=== PATIENT | male | born 1975 | race Hispanic/Latino ===

== ENCOUNTER 2022-09-23 14:26 | Emergency (ER) | payer OTHER ==
[~2022-09-23] VITALS: Ht 180.3 cm; Wt 176.9 kg
[2022-09-23 14:50] LABS: BASOPHILS % (AUTO) 0.3 % (0.0-5.0); EOSINOPHILS % (AUTO) 0.7 % (0.0-8.0); HEMATOCRIT 39.9 % (42-54); LYMPHOCYTES % (AUTO) 23.5 % (21.0-51.0); MEAN CORPUSCULAR HEMOGLOBIN 29.6 pg (27.0-33.0); MEAN CORPUSCULAR HGB CONC 35.3 g/dL (32.0-36.0); MEAN CORPUSCULAR VOLUME 83.6 fL (79-99); MONOCYTES % (AUTO) 21.1 % (3.0-13.0); NEUTROPHILS % (AUTO) 52.2 % (40.0-77.0); NUCLEATED RED BLOOD CELLS 0.3 % (0.0-0.19); PLATELET COUNT (AUTO) 159 K/uL (130-400); RED BLOOD CELL COUNT(AUTO) 4.77 MIL/uL (4.50-6.20); RED CELL DISTRIBUTION WIDTH 14.8 % (11.0-15.5); WHITE BLOOD COUNT (AUTO) 7.1 K/uL (4.8-10.8)
[2022-09-23 14:56] LABS: CREATININE 0.9 mg/dL (0.5-1.5); POTASSIUM 3.5 mmol/L (3.5-5.1)
[2022-09-23 15:06] LABS: TOTAL PROTEIN, SERUM 8.4 g/dL (6.0-8.3)
[2022-09-23 15:12] LABS: APPEARANCE,URINE CLEAR (CLEAR); BILIRUBIN,URINE NEGATIVE (NEGATIVE); COLOR,URINE LIGHT-YELLOW (YELLOW); GLUCOSE, URINE (UA) NEGATIVE (NEGATIVE); KETONES,URINE NEGATIVE (NEGATIVE); LEUKOCYTE ESTERASE ,URINE NEGATIVE Leu/uL (NEGATIVE); NITRATE,URINE NEGATIVE (NEGATIVE); OCCULT BLOOD,URINE NEGATIVE (NEGATIVE); PH,URINE 6.5 (5.0-8.0); PROTEIN,URINE 10 mg/dL (NEGATIVE); UROBILINOGEN,URINE 0.2 mg/dL (0.2-1.0)
[2022-09-23 15:24] LABS: BACTERIA,URINE RARE /HPF (None Seen); MUCUS,URINE RARE LPF (None Seen); OTHER CASTS, URINE 1 /LPF (None Seen); RBC,URINE 0-1 /HPF (0-1); SQUAMOUS EPITHELIAL CELL,UR FEW /HPF (0-2)
[2022-09-23] MEDS ORDERED: IBUP-1493 PO (16:56)
[2022-09-23 17:11] VITALS: BP 147/76
[2022-09-23] MEDS ORDERED: KETOROLAC 30MG VIAL (30MG/ML) IVP ONE (17:30)
== END 2022-09-23 17:12 | disposition home or self-care (01) ==
LOC: EDH 14:26
DX: K76.0 Fatty (change of) liver, not elsewhere classified (principal); R10.13 Epigastric pain
CPT/HCPCS: 36415; 71045; 76705; 80053; 81001; 84484; 85025; 87088; 93005

== ENCOUNTER 2022-09-24 07:23 | Emergency (ER) | payer OTHER ==
[~2022-09-24] VITALS: Ht 180.3 cm; Wt 176.9 kg
[~2022-09-24 07:23] MED LIST: IBUP-1493 PO
[2022-09-24 07:44] LABS: BASOPHILS % (AUTO) 0.6 % (0.0-5.0); EOSINOPHILS % (AUTO) 0.4 % (0.0-8.0); HEMATOCRIT 40.4 % (42-54); LYMPHOCYTES % (AUTO) 19.9 % (21.0-51.0); MEAN CORPUSCULAR HEMOGLOBIN 29.2 pg (27.0-33.0); MEAN CORPUSCULAR HGB CONC 34.9 g/dL (32.0-36.0); MEAN CORPUSCULAR VOLUME 83.6 fL (79-99); MONOCYTES % (AUTO) 28.4 % (3.0-13.0); NEUTROPHILS % (AUTO) 47.6 % (40.0-77.0); NUCLEATED RED BLOOD CELLS 0.4 % (0.0-0.19); PLATELET COUNT (AUTO) 144 K/uL (130-400); RED BLOOD CELL COUNT(AUTO) 4.83 MIL/uL (4.50-6.20); RED CELL DISTRIBUTION WIDTH 14.6 % (11.0-15.5); WHITE BLOOD COUNT (AUTO) 7.2 K/uL (4.8-10.8)
[2022-09-24] MEDS ORDERED: IOHEXOL 350 MG/ML 100ML INFUS..BTL IV ONE (07:45)
[2022-09-24] MEDS ORDERED: IOHEXOL-350 50ML VIAL IV ONE (07:59)
[2022-09-24 08:15] LABS: ALBUMIN 3.7 g/dL (3.5-5.0); CREATININE 0.9 mg/dL (0.5-1.5); POTASSIUM 3.3 mmol/L (3.5-5.1); TOTAL PROTEIN, SERUM 8.2 g/dL (6.0-8.3)
[2022-09-24 08:33] LABS: CREATINE KINASE, TOTAL 288 U/L (21-232); LIPASE 68 U/L (114-286)
[2022-09-24] MEDS ORDERED: MORPHINE 2 MG SYG IVP ONE (09:00)
[2022-09-24] MEDS ORDERED: LABETALOL 20MG VIAL IV ONE (09:00)
[2022-09-24] MEDS ORDERED: ONDANSETRON 4MG INJ IVP ONE (09:00)
[2022-09-24] MEDS ORDERED: LABETALOL 20MG SYG IV ONE ×2 (09:13→10:20)
[2022-09-24 09:39] LABS: INR 1.04 (0.85-1.15); PROTHROMBIN TIME 11.3 SEC (9.6-11.6)
[2022-09-24 09:40] LABS: PARTIAL THROMBOPLASTIN TIME 27.8 SEC (26.3-35.5)
[2022-09-24 09:53] LABS: APPEARANCE,URINE CLEAR (CLEAR); BILIRUBIN,URINE NEGATIVE (NEGATIVE); COLOR,URINE LIGHT-YELLOW (YELLOW); GLUCOSE, URINE (UA) NEGATIVE (NEGATIVE); KETONES,URINE 20 mg/dL (NEGATIVE); LEUKOCYTE ESTERASE ,URINE NEGATIVE Leu/uL (NEGATIVE); MUCUS,URINE RARE LPF (None Seen); NITRATE,URINE NEGATIVE (NEGATIVE); OCCULT BLOOD,URINE NEGATIVE (NEGATIVE); PH,URINE 5.5 (5.0-8.0); PROTEIN,URINE 20 mg/dL (NEGATIVE); RBC,URINE 0-1 /HPF (0-1); SQUAMOUS EPITHELIAL CELL,UR RARE /HPF (0-2); UROBILINOGEN,URINE 0.2 mg/dL (0.2-1.0)
[2022-09-24] MEDS ORDERED: MORPHINE 4 MG SYG IVP SCH (10:30)
[2022-09-24 14:00] VITALS: BP 157/81
== END 2022-09-24 14:20 | disposition home or self-care (01) ==
LOC: EDH 07:23
DX: N28.89 Other specified disorders of kidney and ureter (principal); M79.10 Myalgia, unspecified site; I10 Essential (primary) hypertension; E78.00 Pure hypercholesterolemia, unspecified; Z20.822 Contact with and (suspected) exposure to COVID-19; Z98.890 Other specified postprocedural states
CPT/HCPCS: 99285; 74174; 96374; 71275; 71045; 96375; 87635 ×2; 82550; 84484 ×2; 80053; 83880; 83690; 85025; 85378; 85610; 85730; 85651; 87880; 87804 ×2; 81001; 36415; 93005; 96376; C9803; J2405; J2270; Q9967 ×2

== ENCOUNTER 2022-10-06 06:46 | Observation (INO) | payer OTHER ==
[~2022-10-06] VITALS: Ht 180.3 cm; Wt 177.1 kg
[2022-10-06] MEDS ORDERED: MORPHINE 4 MG SYG IVP ONE (07:30)
[2022-10-06 07:33] LABS: BASOPHILS % (AUTO) 0.3 % (0.0-5.0); EOSINOPHILS % (AUTO) 0.2 % (0.0-8.0); HEMATOCRIT 35.7 % (42-54); LYMPHOCYTES % (AUTO) 37.1 % (21.0-51.0); MEAN CORPUSCULAR HEMOGLOBIN 29.2 pg (27.0-33.0); MEAN CORPUSCULAR HGB CONC 35.6 g/dL (32.0-36.0); MEAN CORPUSCULAR VOLUME 82.1 fL (79-99); MONOCYTES % (AUTO) 56.3 % (3.0-13.0); NEUTROPHILS % (AUTO) 5.3 % (40.0-77.0); NUCLEATED RED BLOOD CELLS 0.5 % (0.0-0.19); PLATELET COUNT (AUTO) 21 K/uL (130-400); RED BLOOD CELL COUNT(AUTO) 4.35 MIL/uL (4.50-6.20); RED CELL DISTRIBUTION WIDTH 15.2 % (11.0-15.5)
[2022-10-06 07:56] LABS: WHITE BLOOD COUNT (AUTO) 54.8 K/uL (4.8-10.8)
[2022-10-06 07:59] LABS: ALBUMIN 3.3 g/dL (3.5-5.0); CREATININE 0.9 mg/dL (0.5-1.5); POTASSIUM 3.5 mmol/L (3.5-5.1); TOTAL PROTEIN, SERUM 7.7 g/dL (6.0-8.3)
[2022-10-06 08:52] LABS: MAGNESIUM 1.7 mg/dL (1.80-2.40); PHOSPHORUS 3.8 mg/dL (2.5-4.9)
[2022-10-06 09:07] LABS: BASOPHILS % (AUTO) 0.1 % (0.0-5.0); EOSINOPHILS % (AUTO) 0.2 % (0.0-8.0); HEMATOCRIT 36.7 % (42-54); LYMPHOCYTES % (AUTO) 27.2 % (21.0-51.0); MEAN CORPUSCULAR HEMOGLOBIN 29.5 pg (27.0-33.0); MEAN CORPUSCULAR HGB CONC 35.7 g/dL (32.0-36.0); MEAN CORPUSCULAR VOLUME 82.7 fL (79-99); MONOCYTES % (AUTO) 65.9 % (3.0-13.0); NEUTROPHILS % (AUTO) 5.9 % (40.0-77.0); NUCLEATED RED BLOOD CELLS 0.5 % (0.0-0.19); PLATELET COUNT (AUTO) 21 K/uL (130-400); RED BLOOD CELL COUNT(AUTO) 4.44 MIL/uL (4.50-6.20); RED CELL DISTRIBUTION WIDTH 15.3 % (11.0-15.5)
[2022-10-06 09:27] LABS: WHITE BLOOD COUNT (AUTO) 57.5 K/uL (4.8-10.8)
[2022-10-06 09:29] LABS: INR 1.18 (0.85-1.15); PROTHROMBIN TIME 12.7 SEC (9.6-11.6)
[2022-10-06] MEDS ORDERED: MAGNESIUM 2GM PREMIX 50ML 50 ML IV PRN (09:30)
[2022-10-06] MEDS ORDERED: ONDANSETRON 4MG INJ IVP PRN (09:30)
[2022-10-06] MEDS ORDERED: ACETAMINOPHEN 325 MG TAB PO PRN ×2 (09:30→18:00)
[2022-10-06 09:31] LABS: PARTIAL THROMBOPLASTIN TIME 27.1 SEC (26.3-35.5)
[2022-10-06] MEDS ORDERED: GADOTERATE MEGLUMINE 10 MMOL/20 ML VIAL IV ONE (09:42)
[2022-10-06] MEDS: CEFEPIME HCL 2 GM VIAL IVP SCH ×2 (09:48→17:56)
[2022-10-06 10:11] LABS: BAND NEUTROPHILS % (MANUAL) 1 % (0-2); BLASTS, MANUAL % 91 (0-0); EOSINOPHILS % (MANUAL) 1 % (1-6); LYMPHOCYTES % (MANUAL) 4 % (22-44); SEGMENTED NEUTROPHILS % 3 % (40-70)
[2022-10-06 10:12] LABS: MAN.DIFF COMMENT-IMPRESSION MANUAL DIFFERENTIAL
[2022-10-06 10:13] LABS: PLATELET MORPHOLOGY COMMENT MARKED DECREASE
[2022-10-06] MEDS ORDERED: MORPHINE 2 MG SYG IVP PRN ×2 (11:00→18:30)
[2022-10-06] MEDS ORDERED: MORPHINE 2 MG SYG ONE (11:06)
[2022-10-06] MEDS ORDERED: LOSA100T58 PO (12:48)
[2022-10-06] MEDS ORDERED: SIMV10TA97 PO (12:48)
[2022-10-06] MEDS ORDERED: TIZA6CAP9 PO (12:48)
[2022-10-06] MEDS ORDERED: HYDR25TA PO (12:48)
[2022-10-06 13:25] LABS: APPEARANCE,URINE CLEAR (CLEAR); BILIRUBIN,URINE NEGATIVE (NEGATIVE); COLOR,URINE LIGHT-YELLOW (YELLOW); GLUCOSE, URINE (UA) NEGATIVE (NEGATIVE); KETONES,URINE NEGATIVE (NEGATIVE); LEUKOCYTE ESTERASE ,URINE NEGATIVE Leu/uL (NEGATIVE); NITRATE,URINE NEGATIVE (NEGATIVE); PROTEIN,URINE 20 mg/dL (NEGATIVE); UROBILINOGEN,URINE 0.2 mg/dL (0.2-1.0)
[2022-10-06 13:56] LABS: BACTERIA,URINE RARE /HPF (None Seen); MUCUS,URINE RARE LPF (None Seen); SQUAMOUS EPITHELIAL CELL,UR RARE /HPF (0-2)
[2022-10-06] MEDS ORDERED: HYDROMORPHONE 0.5 MG SYG (0.5MG/0.5ML) IVP PRN (14:00)
[2022-10-06] MEDS ORDERED: CEFEPIME HCL 1 GM VIAL IVP SCH (18:00)
[2022-10-06] MEDS ORDERED: VANCOMYCIN PROTOCOL PER PHARMACY IV SCH (18:30)
[2022-10-06] MEDS ORDERED: VANCOMYCIN 2GM/500 ML BAG 500 ML IV ONE (19:30)
[2022-10-06 23:38] VITALS: BP 138/72
[2022-10-07] MEDS ORDERED: VANCOMYCIN 1.25 GM/250 ML BAG 250 ML IV SCH (02:00)
== END 2022-10-07 01:26 | disposition short-term general hospital (02) ==
LOC: EDH 06:46 → EDHIP 06:47
PROVIDERS: ADMIT Internal Medicine Infectious Disease; ATTEND Internal Medicine Infectious Disease
DX: D72.829 Elevated white blood cell count, unspecified (principal); Z20.822 Contact with and (suspected) exposure to COVID-19; R10.13 Epigastric pain; M54.9 Dorsalgia, unspecified; N28.1 Cyst of kidney, acquired; D69.6 Thrombocytopenia, unspecified; D64.9 Anemia, unspecified; I10 Essential (primary) hypertension; N28.89 Other specified disorders of kidney and ureter; E66.01 Morbid (severe) obesity due to excess calories; E78.5 Hyperlipidemia, unspecified; E78.00 Pure hypercholesterolemia, unspecified; Z79.899 Other long term (current) drug therapy
CPT/HCPCS: 96376; 96365; 96366; 96375; 96367; 99285; 83735; 84100; 84484; 80053; 83690; 85025 ×2; 85610; 85730; 87040 ×2; 87804 ×2; 83605; 81001; 36415; 87635; 71045; 74183; 93005; G0378 ×18; J3475; J2270; J0692 ×2; A9575; J3370